=== PATIENT | male | born 1945 | race Asian ===

== ENCOUNTER 2016-10-02 06:20 | Day surgery (SDC) | payer OTHER ==
[~2016-10-02] VITALS: Ht 157.5 cm; Wt 61.2 kg
[2016-10-02] MEDS ORDERED: BUPIVACAINE-MPF/EPI 0.5% 30 ML VIAL INJ ONE (07:15)
[2016-10-02] MEDS ORDERED: ePHEDrine 50 MG/ML VIAL IV ONE (08:52)
[2016-10-02] MEDS ORDERED: PROPOFOL 200 MG/20 ML VIAL IV ONE (08:52)
[2016-10-02] MEDS ORDERED: ONDANSETRON 4 MG/2 ML VIAL IVP PRN (09:25)
[2016-10-02] MEDS ORDERED: HYDROmorphone 1 MG/ML AMP IVP PRN (09:25)
== END 2016-10-02 11:55 | disposition home or self-care (01) ==
LOC: MDS 06:20 → MMU 06:21 → MDS 11:55
PROVIDERS: ATTEND Internal Medicine Gastroenterology
DX: Z12.11 Encounter for screening for malignant neoplasm of colon (principal); D12.2 Benign neoplasm of ascending colon; Z46.59 Encounter for fitting and adjustment of other gastrointestinal appliance and device; I25.119 Atherosclerotic heart disease of native coronary artery with unspecified angina pectoris; I12.9 Hypertensive chronic kidney disease with stage 1 through stage 4 chronic kidney disease, or unspecified chronic kidney disease; E11.22 Type 2 diabetes mellitus with diabetic chronic kidney disease; N18.9 Chronic kidney disease, unspecified; I63.9 Cerebral infarction, unspecified; E66.3 Overweight; J45.909 Unspecified asthma, uncomplicated; D64.9 Anemia, unspecified; F03.90 Unspecified dementia, unspecified severity, without behavioral disturbance, psychotic disturbance, mood disturbance, and anxiety; F17.210 Nicotine dependence, cigarettes, uncomplicated; Z90.49 Acquired absence of other specified parts of digestive tract
CPT/HCPCS: 36415; 43275; 45385; 71010; 74000; 74330; 80053; 82248; 85025; 85610; 85730; 93005; J2704; J3490; J7030; Q0092